=== PATIENT | female | born 1960 | race Caucasian/White ===

== ENCOUNTER 2017-04-14 18:34 | Inpatient (IN) | payer MEDICAID, OTHER ==
[2017-04-14 19:41] LABS: HEMATOCRIT 39.4 % (37.0-47.0); MEAN CORPUSCULAR HEMOGLOBIN 30.5 pg (29.0-33.0); MEAN CORPUSCULAR HGB CONC 35.5 g/dl (32.0-37.0); MEAN CORPUSCULAR VOLUME 85.8 fl (82.0-101.0); PLATELET COUNT 221 10^3/UL (140-415); RED BLOOD COUNT 4.59 10^6/ul (4.20-5.40); RED CELL DISTRIBUTION WIDTH 13.2 % (11.5-14.5)
[2017-04-14 19:41] LABS: WHITE BLOOD COUNT 19.4 10^3/ul (4.8-10.8)
[2017-04-14 19:47] LABS: ADD MAN DIFF? YES; POSITIVE DIFF @See below
[2017-04-14 19:58] LABS: INR 1.19; PROTIME 15.3 Sec (11.9-14.9); PT RATIO 1.2
[2017-04-14 19:59] LABS: PARTIAL THROMBOPLASTIN TIME 25.2 Sec (25.0-35.0)
[2017-04-14] MEDS: SOD CHLORIDE 0.9% 1,000 ML IV ×2 (20:01)
[2017-04-14 20:02] LABS: ALANINE AMINOTRANSFERASE 29 IU/L (13-69); ALBUMIN 4.4 g/dl (3.3-4.9); ALBUMIN/GLOBULIN RATIO 1.29; ALKALINE PHOSPHATASE 118 IU/L (42-121); ANION GAP 21 (8-16); ASPARTATE AMINO TRANSFERASE 29 IU/L (15-46); BILIRUBIN,INDIRECT 0.3 mg/dl (0-1.1); BILIRUBIN,TOTAL 0.3 mg/dl (0.2-1.3); BLOOD UREA NITROGEN 19 mg/dl (7-20); CALCIUM 8.8 mg/dl (8.4-10.2); CARBON DIOXIDE 20 mmol/L (21-31); CHLORIDE 101 mmol/L (97-110); CREATININE 1.05 mg/dl (0.44-1.00); GLUCOSE 184 mg/dl (70-220); POTASSIUM 3.3 mmol/L (3.5-5.1); SODIUM 139 mmol/L (135-144); TOTAL PROTEIN 7.8 g/dl (6.1-8.1)
[2017-04-14 20:14] LABS: TROPONIN-I < 0.012 ng/ml (0.00-0.12)
[2017-04-14 20:29] LABS: ANISOCYTOSIS 1+ (0-0); BAND NEUTROPHILS #M 2.5 10^3/ul (0.0-0.6); BAND NEUTROPHILS % (M) 13 % (0-4); LYMPHOCYTES #M 1.9 10^3/ul (0.8-2.9); LYMPHOCYTES % (M) 10 % (15-51); MICROCYTOSIS 1+ (0-0); MONOCYTE #M 0.7 10^3/ul (0.3-0.9); MONOCYTES % (M) 4 % (0-11); PLATELET ESTIMATE NORMAL; SEG NEUT #M 14.6 10^3/ul (1.6-7.5); SEGMENTED NEUTROPHILS (M) % 73 % (39-77); SMUDGE%M 1 % (0-0)
[2017-04-14] MEDS ORDERED: ONDANSETRON 4 MG INJ IV (20:30)
[2017-04-14] MEDS ORDERED: ACETAMINOPHEN 325 MG TAB PO (20:30)
[2017-04-14] MEDS: CEFEPIME 2GM/50 ML (PMX) 50 ML IVPB (20:46)
[2017-04-14 21:15] LABS: ADD UMIC YES; UR ASCORBIC ACID NEGATIVE (NEGATIVE); UR BILIRUBIN (Dip) NEGATIVE (NEGATIVE); UR BLOOD (Dip) 1+ mg/dL (NEGATIVE); UR CLARITY CLOUDY (CLEAR); UR COLOR AMBER (YELLOW); UR GLUCOSE (Dip) 1+ mg/dL (NEGATIVE); UR KETONES (Dip) NEGATIVE (NEGATIVE); UR LEUKOCYTE ESTERASE (Dip) NEGATIVE Leu/ul (NEGATIVE); UR MUCUS MANY /HPF (NONE SEEN); UR NITRITE (Dip) NEGATIVE (NEGATIVE); UR RBC 2 /HPF (0-5); UR SPECIFIC GRAVITY (Dip) 1.023 (1.003-1.030); UR SQUAMOUS EPITHELIAL CELL MODERATE /HPF (FEW); UR TOTAL PROTEIN (Dip) 2+ mg/dl (NEGATIVE); UR UROBILINOGEN (Dip) NEGATIVE (NEGATIVE); UR WBC 9 /HPF (0-5)
[2017-04-14 21:21] LABS: LACTIC ACID 2.1 mmol/L (0.5-2.0)
[2017-04-14] MEDS: SOD CHLORIDE 0.9% 250 ML IV (21:38)
[2017-04-15] LABS: LACTIC ACID 1.3 mmol/L (0.5-2.0)
[2017-04-15] MEDS ORDERED: morphine 2 MG INJ IV (03:00)
[2017-04-15] MEDS ORDERED: ONDANSETRON 4 MG INJ IV (03:00)
[2017-04-15] MEDS ORDERED: NACL 0.9% 3 ML SYG IV (03:00)
[2017-04-15] MEDS ORDERED: ALBUTEROL/IPRATROPIUM (NEB) 3 ML AMP HHN (03:00)
[2017-04-15] MEDS: SOD CHLORIDE 0.9% 1,000 ML IV ×2 (03:15→12:12)
[2017-04-15 04:32] LABS: TROPONIN-I < 0.012 ng/ml (0.00-0.12)
[2017-04-15 06:38] LABS: HEMATOCRIT 32.9 % (37.0-47.0); HEMOGLOBIN 11.5 g/dl (12.0-16.0); MEAN CORPUSCULAR HEMOGLOBIN 30.3 pg (29.0-33.0); MEAN CORPUSCULAR VOLUME 86.8 fl (82.0-101.0); MEAN PLATELET VOLUME 11.3 fl (7.4-10.4); PLATELET COUNT 165 10^3/UL (140-415); RED BLOOD COUNT 3.79 10^6/ul (4.20-5.40); RED CELL DISTRIBUTION WIDTH 13.4 % (11.5-14.5)
[2017-04-15 06:38] LABS: WHITE BLOOD COUNT 11.6 10^3/ul (4.8-10.8)
[2017-04-15 06:41] LABS: ADD MAN DIFF? YES; POSITIVE DIFF @See below
[2017-04-15 07:14] LABS: HEMOGLOBIN A1C 5.3 % (0-5.9)
[2017-04-15] MEDS: ACETAMINOPHEN 325 MG TAB PO ×2 (07:19→23:33)
[2017-04-15 07:21] LABS: ANISOCYTOSIS 2+ (0-0); BAND NEUTROPHILS #M 1.1 10^3/ul (0.0-0.6); BAND NEUTROPHILS % (M) 10 % (0-4); LYMPHOCYTES #M 1.3 10^3/ul (0.8-2.9); LYMPHOCYTES % (M) 12 % (15-51); MICROCYTOSIS 2+ (0-0); MONOCYTE #M 0.4 10^3/ul (0.3-0.9); MONOCYTES % (M) 4 % (0-11); PLATELET ESTIMATE NORMAL; POLYCHROMASIA 1+ (0-0); SEG NEUT #M 8.7 10^3/ul (1.6-7.5); SEGMENTED NEUTROPHILS (M) % 74 % (39-77); SMUDGE%M 6 % (0-0)
[2017-04-15 07:22] LABS: ALANINE AMINOTRANSFERASE 27 IU/L (13-69); ALBUMIN 3.1 g/dl (3.3-4.9); ALBUMIN/GLOBULIN RATIO 0.96; ALKALINE PHOSPHATASE 85 IU/L (42-121); ANION GAP 11 (8-16); ASPARTATE AMINO TRANSFERASE 20 IU/L (15-46); BILIRUBIN,INDIRECT 0.2 mg/dl (0-1.1); BILIRUBIN,TOTAL 0.2 mg/dl (0.2-1.3); BLOOD UREA NITROGEN 15 mg/dl (7-20); CALCIUM 8.1 mg/dl (8.4-10.2); CARBON DIOXIDE 22 mmol/L (21-31); CHLORIDE 111 mmol/L (97-110); CHOL/HDL RATIO 4.4 RATIO; CHOLESTEROL 141 mg/dl (100-200); CREATININE 0.67 mg/dl (0.44-1.00); GLUCOSE 105 mg/dl (70-220); HDL CHOLESTEROL 32 mg/dl (35-98); LDL CHOLESTEROL,CALCULATED 94 mg/dl; MAGNESIUM 1.7 mg/dl (1.7-2.5); POTASSIUM 3.2 mmol/L (3.5-5.1); SODIUM 141 mmol/L (135-144); TOTAL PROTEIN 6.3 g/dl (6.1-8.1); TRIGLYCERIDES 76 mg/dl (0-149)
[2017-04-15 07:48] LABS: THYROID STIMULATING HORMONE 0.467 MIU/L (0.465-4.680)
[2017-04-15] MEDS: ASPIRIN 81 MG TAB PO (09:36)
[2017-04-15] MEDS: CEFTRIAXONE 1 GM/50 ML (PMX) 50 ML IVPB ×2 (09:37→20:49)
[2017-04-15 11:10] LABS: CREATINE KINASE 76 IU/L (23-200)
[2017-04-15 11:11] LABS: CK-MB 0.83 ng/ml (0.0-2.4)
[2017-04-15 11:16] LABS: CK INDEX 1.1; TROPONIN-I < 0.012 ng/ml (0.00-0.12)
[2017-04-15] MEDS: POTASSIUM CHLORIDE (SR) 20 MEQ TAB PO (12:12)
[2017-04-15] MEDS: NS + KCL 20 MEQ 1,000 ML IV (17:43)
[2017-04-15] MEDS: ATORVASTATIN 20 MG TAB PO (20:49)
[2017-04-16] MEDS: NS + KCL 20 MEQ 1,000 ML IV (02:00)
[2017-04-16 05:42] LABS: HEMATOCRIT 32.6 % (37.0-47.0); HEMOGLOBIN 11.6 g/dl (12.0-16.0); MEAN CORPUSCULAR HEMOGLOBIN 31.2 pg (29.0-33.0); MEAN CORPUSCULAR HGB CONC 35.6 g/dl (32.0-37.0); MEAN CORPUSCULAR VOLUME 87.6 fl (82.0-101.0); MEAN PLATELET VOLUME 11.5 fl (7.4-10.4); PLATELET COUNT 162 10^3/UL (140-415); RED BLOOD COUNT 3.72 10^6/ul (4.20-5.40); RED CELL DISTRIBUTION WIDTH 13.2 % (11.5-14.5)
[2017-04-16 05:42] LABS: WHITE BLOOD COUNT 6.6 10^3/ul (4.8-10.8)
[2017-04-16 06:05] LABS: ANION GAP 12 (8-16); BLOOD UREA NITROGEN 7 mg/dl (7-20); CALCIUM 8.6 mg/dl (8.4-10.2); CARBON DIOXIDE 25 mmol/L (21-31); CHLORIDE 113 mmol/L (97-110); CREATININE 0.61 mg/dl (0.44-1.00); GLUCOSE 89 mg/dl (70-220); PHOSPHORUS 2.3 mg/dl (2.5-4.9); POTASSIUM 4.2 mmol/L (3.5-5.1); SODIUM 146 mmol/L (135-144)
[2017-04-16 06:49] LABS: ADD MAN DIFF? YES; POSITIVE DIFF @See below
[2017-04-16 07:12] LABS: CK INDEX 0.8; CREATINE KINASE 77 IU/L (23-200)
[2017-04-16] MEDS: ASPIRIN 81 MG TAB PO (08:56)
[2017-04-16] MEDS: CEFTRIAXONE 1 GM/50 ML (PMX) 50 ML IVPB (08:56)
[2017-04-16 09:06] LABS: ANISOCYTOSIS 2+ (0-0); BAND NEUTROPHILS % (M) 16 % (0-4); BASOPHILS % (M) 1 % (0-2); EOSINOPHILS % (M) 3 % (0-7); GIANT THROMBO% (M) 3 % (0-0); LYMPHOCYTES #M 1.4 10^3/ul (0.8-2.9); LYMPHOCYTES % (M) 22 % (15-51); MICROCYTOSIS 2+ (0-0); MONOCYTE #M 0.3 10^3/ul (0.3-0.9); MONOCYTES % (M) 6 % (0-11); PLATELET ESTIMATE NORMAL; POLYCHROMASIA 2+ (0-0); REACTIVE LYMPHOCYTES #M 0.1 10^3/ul (0.0-0.0); REACTIVE LYMPHOCYTES% (M) 2 % (0-0); SEG NEUT #M 3.4 10^3/ul (1.6-7.5); SEGMENTED NEUTROPHILS (M) % 50 % (39-77); SMUDGE%M 11 % (0-0)
== END 2017-04-16 13:30 | disposition home or self-care (01) | DRG 149 ==
LOC: MS3 20:16 → E/R 18:34
DX: R42 Dizziness and giddiness (principal); N17.9 Acute kidney failure, unspecified; E86.0 Dehydration; E87.6 Hypokalemia; D72.829 Elevated white blood cell count, unspecified
CPT/HCPCS: 36415; 70450; 71045; 80048; 80053; 80061; 81001; 82550; 82553; 83036; 83605; 83735; 84100; 84443; 84484; 85025; 85610; 85730; 86850; 86900; 86901; 87040; 87086; 93005; 93306; 93880; 96374; 96375; 97161; 99285-25